=== PATIENT | male | born 1960 | race African-American/Black ===

== ENCOUNTER 2016-11-13 23:16 | Emergency (ER) | payer MEDICAID ==
[2016-11-14] MEDS ORDERED: ONDANSETRON HCL INJ/PF 4 MG/2 ML SDV IV ONE (01:52)
[2016-11-14] MEDS ORDERED: MORPHINE SULFATE 10 MG/ML INJ IV ONE (01:52)
--- NOTE | 2016-11-14 01:57 | ER Document Report ---
ED GI/ - General Chief Complaint: Abdominal Pain Stated Complaint: ABDOMINAL PAIN Notes: The patient is a 56-year-old male, past medical history diabetes, hypertension, appendectomy, presents by EMS with 2 days of epigastric pain and left lower quadrant abdominal pain with nausea and one episode of vomiting earlier today. His last bowel movement was 2 days ago. He is also having mild substernal pain. Denies fevers, cough, shortness of breath, back pain, urinary symptoms, headache, rash or flank pain. TRAVEL OUTSIDE OF THE [place] IN LAST 30 DAYS: No - Related Data Allergies/Adverse Reactions: No Known Drug Allergies Allergy (Unknown, Verified 11/11/10 08:17) Past Medical History - General Information source: Patient - Social History Smoking Status: Unknown if Ever Smoked Family History: Reviewed & Not Pertinent - Past Medical History Cardiac Medical History: Reports: Hx Coronary Artery Disease, Hx Heart Attack, Hx Hypertension Endocrine Medical History: Reports: Hx Diabetes Mellitus Type 1, Hx Diabetes Mellitus Type 2 Renal/ Medical History: Denies: Hx Peritoneal Dialysis Musculoskeltal Medical History: Reports Hx Arthritis Psychiatric Medical History: Denies: Hx Depression - Immunizations Hx Diphtheria, Pertussis, Tetanus Vaccination: Yes Review of Systems - Review of Systems Notes: REVIEW OF SYSTEMS: CONSTITUTIONAL: -fevers, -chills EENT: -eye pain, -difficulty swallowing, -nasal congestion CARDIOVASCULAR:-chest pain, -syncope. RESPIRATORY: -cough, -SOB GASTROINTESTINAL: +abdominal pain, +nausea, +vomiting, +constipation, -diarrhea GENITOURINARY: -dysuria, -hematuria MUSCULOSKELETAL: -back pain, -neck pain SKIN: -rash or skin lesions. HEMATOLOGIC: -easy bruising or bleeding. LYMPHATIC: -swollen, enlarged glands. NEUROLOGICAL: -altered mental status or loss of consciousness, -headache, - neurologic symptoms PSYCHIATRIC: -anxiety, -depression. ALL OTHER SYSTEMS REVIEWED AND NEGATIVE. Physical Exam - Vital signs Vitals: Temp Pulse Resp BP Pulse Ox 98.5 F 80 18 127/85 H 97 11/13/16 23:39 11/13/16 23:39 11/13/16 23:39 11/13/16 23:39 11/13/16 23:39 - Notes Notes: PHYSICAL EXAMINATION: GENERAL: Well-appearing, well-nourished and in no acute distress. HEAD: Atraumatic, normocephalic. EYES: Pupils equal round and reactive to light, extraocular movements intact, sclera anicteric, conjunctiva are normal. ENT: nares patent, oropharynx clear without exudates. Moist mucous membranes. NECK: Normal range of motion, supple without lymphadenopathy LUNGS: Breath sounds clear to auscultation bilaterally and equal. No wheezes rales or rhonchi. HEART: Regular rate and rhythm without murmurs ABDOMEN: Tenderness in epigastric area and left lower quadrant. Normal bowel sounds. EXTREMITIES: Normal range of motion, no pitting or edema. No cyanosis. NEUROLOGICAL: Cranial nerves grossly intact. Normal speech, normal gait. Normal sensory, motor, and reflex exams. PSYCH: Normal mood, normal affect. SKIN: Warm, Dry, normal turgor, no rashes or lesions noted. Course - Re-evaluation Re-evalutation: 11/14/16 04:35 Pt pain free. Repeat abdominal exam is completely nontender. CT shows no acute changes, other than CBD dilation that no signs of cholecystitis. Patient has no right upper quadrant abdominal pain or tenderness and no abnormal LFTs. Also spoke to patient about possibility of splenic cancer and need for MRI as an outpatient. Provided patient with report to bring to his primary care physician. Will begin Prilosec for symptoms of gastritis. Given strict return precautions and he understands. - Vital Signs Vital signs: Temp Pulse Resp BP Pulse Ox 98.5 F 80 18 127/85 H 97 11/13/16 23:39 11/13/16 23:39 11/13/16 23:39 11/13/16 23:39 11/13/16 23:39 - Laboratory Result Diagrams: 11/14/16 03:12 11/14/16 02:33 Laboratory results interpreted by me: 11/14/16 11/14/16 02:33 03:12 RDW 14.8 H BUN 22 H Creatinine 1.37 H Est GFR (Non-Af Amer) 53 L - Diagnostic Test Radiology reviewed: Image reviewed, Reports reviewed Radiology results interpreted by me: CT A/P: IMPRESSION: 1. A 3.6 cm ovoid lesion of the spleen ; cannot exclude neoplasm. Correlation with dynamic contrast MRI of the abdomen recommended. 2. 1.0 cm diameter common duct enlargement. Consider laboratory/sonographic correlation. 3. 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 4. Mild pericarditis. - EKG Interpretation by Me EKG shows normal: Sinus rhythm, Morris, Intervals, QRS Complexes, ST-T Waves Discharge - Discharge Clinical Impression: Epigastric abdominal pain Condition: Good Disposition: HOME, SELF-CARE Additional Instructions: You must follow-up with your primary care physician for further evaluation of the possibility of a cancer in your spleen. An MRI is recommended. Take the CT report with you. Begin the Prilosec to help with any pain. Return to the ER if you notice worsening pain or any other concerns. ABDOMINAL PAIN: There are many causes of abdominal pain. Pain can mean a serious problem requiring surgery (such as appendicitis). It can also be an innocent problem that goes away on its own (such as a viral infection). Often, time must pass to determine the cause of pain. The physician does not feel that hospitalization is necessary, at present. Things may change within the next 24 hours. Call the doctor or come back for re- examination if any problems occur, such as: (1) Pain that becomes more severe, steady, or becomes concentrated in one specific area. Also, pain that is more severe with movement or coughing. (2) Vomiting that persists or becomes more frequent. (3) Blood in the vomitus, urine, or bowel movements. Blood in the stool may have a tarry or black appearance. (4) Shaking chills or fever greater than 100 degrees F. (5) The abdomen becomes more distended or swollen. (6) Bowel movements cease. (7) Failure to improve as expected. NORMAL EXAM AND WORKUP: At this time, your examination and workup show no significant abnormality. No significant abnormal physical findings are noted. All laboratory, EKG, and imaging (x-ray, CT scans, ultrasound) studies that were ordered show no significant abnormality. Although your examination and all studies that were ordered showed no significant abnormal finding, there are no examinations and no studies that are 100% accurate. There is always the possibility that some abnormality could exist and not be detected with physical examination or within the limits and capabilities of laboratory and other studies. You should return or follow up as you were instructed on your visit today for further evaluation if your symptoms do not resolve. PAIN MEDICATION INJECTION: You have received an injection of a pain medication. You should experience significant pain relief within 45 minutes. This drug is a narcotic - - it will impair your judgement, slow your reaction time and make you sleepy ( as well as relieve your pain). Narcotics also can cause nausea. You should not drive, work with machinery, or perform any task requiring mental alertness until all effects of the medication are gone -- six to eight hours. Do not take any alcohol, or sedatives, and do not take any other medication without checking with your physician. FOLLOW-UP CARE: If you have been referred to a physician for follow-up care, call the physician s office for an appointment as you were instructed or within the next two days. If you experience worsening or a significant change in your symptoms, notify the physician immediately or return to the Emergency Department at any time for re-evaluation. Prescriptions: Omeprazole Magnesium [Prilosec Otc] 20 mg PO BID #14 tablet. Referrals: VANESSA LINDSAY MD [ACTIVE STAFF] - Follow up as needed
[2016-11-14 03:03] LABS: ALANINE AMINOTRANSFERASE 27 U/L (21-72); ALBUMIN 4.2 g/dL (3.5-5.0); ALKALINE PHOSPHATASE 106 U/L (38-126); ANION GAP 13 (5-19); ASPARTATE AMINO TRANSFERASE 23 U/L (17-59); BILIRUBIN,DIRECT 0.4 mg/dL (0.0-0.4); BILIRUBIN,TOTAL 0.9 mg/dL (0.2-1.3); BLOOD UREA NITROGEN 22 mg/dL (7-20); CALCIUM 9.6 mg/dL (8.4-10.2); CARBON DIOXIDE 23 mmol/L (22-30); CHLORIDE 103 mmol/L (98-107); CREATINE KINASE 85 U/L (55-170); CREATININE RESULT 1.37 mg/dL (0.52-1.25); GLUCOSE 88 mg/dL (75-110); LIPASE 54.6 U/L (23-300); POTASSIUM 4.7 mmol/L (3.6-5.0); SODIUM 138.9 mmol/L (137-145); TOTAL PROTEIN 7.5 g/dL (6.3-8.2)
[2016-11-14 03:23] LABS: ABSOLUTE BASOPHILS # (AUTO) 0.1 10^3/uL (0.0-0.2); ABSOLUTE EOSINOPHILS # (AUTO) 0.1 10^3/uL (0.0-0.6); ABSOLUTE LYMPHOCYTES (AUTO) 1.4 10^3/uL (0.5-4.7); ABSOLUTE MONOCYTES (AUTO) 0.6 10^3/uL (0.1-1.4); ABSOLUTE NEUT (AUTO) 4.9 10^3/uL (1.7-8.2); EOSINOPHILS % (AUTO) 0.8 % (0-6); HEMATOCRIT 43.5 % (37.9-51.0); HEMOGLOBIN 14.3 g/dL (13.5-17.0); HGB HCT DIFFERENCE -0.6; LYMPHOCYTES % (AUTO) 19.4 % (13-45); MEAN CORPUSCULAR HEMOGLOBIN 27.4 pg (27.0-33.4); MEAN CORPUSCULAR HGB CONC 32.9 g/dL (32.0-36.0); MEAN CORPUSCULAR VOLUME 83 fl (80-97); MONOCYTES % (AUTO) 9.1 % (3-13); RED BLOOD COUNT 5.22 10^6/uL (4.35-5.55); RED CELL DISTRIBUTION WIDTH 14.8 % (11.5-14.0); SEGMENTED NEUTROPHILS % (AUTO) 69.7 % (42-78)
[2016-11-14 05:18] VITALS: BP 129/78
--- NOTE | 2016-11-14 21:55 | EKG REPORT ---
SEVERITY:- NORMAL ECG - SINUS RHYTHM : Confirmed by: Lizeth Peña MD 14-Nov-2016 21:54:04
== END 2016-11-14 05:18 | disposition home or self-care (01) ==
LOC: ER 23:16
DX: R10.13 Epigastric pain (principal); R10.32 Left lower quadrant pain; R11.2 Nausea with vomiting, unspecified; I31.9 Disease of pericardium, unspecified; K83.8 Other specified diseases of biliary tract; D73.89 Other diseases of spleen; E11.9 Type 2 diabetes mellitus without complications; I10 Essential (primary) hypertension; I25.10 Atherosclerotic heart disease of native coronary artery without angina pectoris; I25.2 Old myocardial infarction; Z90.49 Acquired absence of other specified parts of digestive tract
CPT/HCPCS: 93005; 99284; 96374; 96375; 36415; 82550; 83690; 85025; 80076; 80048; 84484; 74177; 93010; J2270; J2405

== ENCOUNTER 2016-11-20 13:31 | Observation (INO) | payer MEDICAID ==
[2016-11-20 14:15] LABS: ABSOLUTE LYMPHOCYTES (AUTO) 1.5 10^3/uL (0.5-4.7); ABSOLUTE MONOCYTES (AUTO) 0.7 10^3/uL (0.1-1.4); ABSOLUTE NEUT (AUTO) 6.4 10^3/uL (1.7-8.2); BASOPHILS % (AUTO) 0.4 % (0-2); EOSINOPHILS % (AUTO) 0.4 % (0-6); HEMATOCRIT 41.4 % (37.9-51.0); HEMOGLOBIN 13.6 g/dL (13.5-17.0); HGB HCT DIFFERENCE -0.6; LYMPHOCYTES % (AUTO) 17.2 % (13-45); MEAN CORPUSCULAR HEMOGLOBIN 27.3 pg (27.0-33.4); MEAN CORPUSCULAR HGB CONC 32.9 g/dL (32.0-36.0); MEAN CORPUSCULAR VOLUME 83 fl (80-97); MONOCYTES % (AUTO) 8.3 % (3-13); RED BLOOD COUNT 4.98 10^6/uL (4.35-5.55); RED CELL DISTRIBUTION WIDTH 15.2 % (11.5-14.0); SEGMENTED NEUTROPHILS % (AUTO) 73.7 % (42-78); WHITE BLOOD COUNT 8.7 10^3/uL (4.0-10.5)
[2016-11-20 14:33] LABS: ALANINE AMINOTRANSFERASE 45 U/L (21-72); ALBUMIN 3.9 g/dL (3.5-5.0); ALKALINE PHOSPHATASE 89 U/L (38-126); ANION GAP 10 (5-19); ASPARTATE AMINO TRANSFERASE 25 U/L (17-59); BILIRUBIN,DIRECT 0.1 mg/dL (0.0-0.4); BILIRUBIN,TOTAL 0.5 mg/dL (0.2-1.3); BLOOD UREA NITROGEN 15 mg/dL (7-20); CALCIUM 9.9 mg/dL (8.4-10.2); CARBON DIOXIDE 25 mmol/L (22-30); CHLORIDE 105 mmol/L (98-107); CREATINE KINASE 73 U/L (55-170); CREATININE RESULT 1.16 mg/dL (0.52-1.25); GLUCOSE 113 mg/dL (75-110); POTASSIUM 4.6 mmol/L (3.6-5.0); SODIUM 139.8 mmol/L (137-145); TOTAL PROTEIN 6.8 g/dL (6.3-8.2)
--- NOTE | 2016-11-20 14:42 | ER Document Report ---
ED General - General Stated Complaint: CHEST PAIN Notes: Patient says that he is having pain in the substernal region of his chest since about 6:30 this morning when he awakened to go to the bathroom. He took a nitroglycerin and felt the pain went away some, but then he vomited a couple of times, green emesis, and then decided to lay down. When he got up his chest pain had eased and he was having pain in the upper abdomen and epigastric region which he thought might be gas. He still has a little bit of nausea, but has not vomited again. His last bowel movement was yesterday. Patient was seen here a week ago for a similar pain and was discharged to follow-up with Dr. Owusu, his primary care provider. Patient has experienced some sweating when he has these pains. No fever noted. Denies any difficulty breathing or shortness of breath. No UTI symptoms. No cough or cold or chest congestion. Came in by EMS. They gave her 4 baby aspirins and tried a nitroglycerin without any improvement. TRAVEL OUTSIDE OF THE [place] IN LAST 30 DAYS: No - Related Data Allergies/Adverse Reactions: No Known Drug Allergies Allergy (Unknown, Verified 11/11/10 08:17) Past Medical History - Social History Smoking Status: Unknown if Ever Smoked Cigarette use (# per day): No Family History: Reviewed & Not Pertinent - Past Medical History Cardiac Medical History: Reports: Hx Coronary Artery Disease, Hx Heart Attack, Hx Hypertension Endocrine Medical History: Reports: Hx Diabetes Mellitus Type 2 Musculoskeltal Medical History: Reports Hx Arthritis Past Surgical History: Reports: Hx Appendectomy - Immunizations Hx Diphtheria, Pertussis, Tetanus Vaccination: Yes Review of Systems - Review of Systems Notes: REVIEW OF SYSTEMS: CONSTITUTIONAL : Denies fever. EENT: Denies eye, ear, nose or mouth or throat pain or other symptoms. CARDIOVASCULAR: See history of present illness. RESPIRATORY: Denies cough, chest congestion, or shortness of breath. GASTROINTESTINAL: See history of present illness regarding epigastric pain with vomiting. No diarrhea. GENITOURINARY: Denies difficulty or painful urinating, urinary frequency, blood in urine. MUSCULOSKELETAL: Denies back or neck pain. Denies joint pain or swelling. SKIN: Denies rash or skin lesions. NEUROLOGICAL: Denies LOC or altered mental status. Denies headache. Denies sensory loss or motor deficits. ALL OTHER SYSTEMS REVIEWED AND NEGATIVE. Physical Exam - Vital signs Vitals: Pulse Ox 100 11/20/16 14:00 Interpretation: Normal - Notes Notes: PHYSICAL EXAMINATION: GENERAL: Well-appearing, in no acute distress. Vital signs are essentially normal. Blood pressure slightly elevated. HEAD: Atraumatic, normocephalic. EYES: Pupils equal round and reactive to light, extraocular movements intact. ENT: oropharynx clear without exudates. Moist mucous membranes. NECK: Normal range of motion, supple. LUNGS: Breath sounds clear and equal bilaterally. HEART: Regular rate and rhythm without murmurs. ABDOMEN: Soft, nontender. No guarding or rebound. No masses felt. No abdominal bruits heard. BACK: No tenderness throughout entire back. EXTREMITIES: Normal range of motion without pain. NEUROLOGICAL: Normal speech, normal gait. Normal sensory, motor, and reflex exams. Awake, alert, and oriented x3. Cranial nerves normal. PSYCH: Normal mood, normal affect. SKIN: Warm, dry, no rashes. Course - Re-evaluation Re-evalutation: 11/20/16 18:32 Patient got some relief, if not total relief from the application of the nitroglycerin patch 0.2 mg. I called and spoke with Dr. Owusu, who agreed to admit the patient for observation and a stress test tomorrow and then hopefully discharge for the weekend. - Vital Signs Vital signs: Temp Pulse Resp BP Pulse Ox 97.8 F 20 99 11/20/16 15:00 11/20/16 15:00 11/20/16 15:00 - Laboratory Result Diagrams: 11/20/16 14:00 11/20/16 14:00 Laboratory results interpreted by me: 11/20/16 11/20/16 14:00 14:00 RDW 15.2 H Plt Count 478 H Glucose 113 H - Diagnostic Test Radiology results interpreted by me: 11/20/16 18:31 Chest x-ray is normal. - EKG Interpretation by Mt EKG shows normal: Sinus rhythm Rate: Normal Rhythm: NSR Additional EKG results interpreted by me: 11/20/16 18:30 EKG is completely normal. Discharge - Discharge Clinical Impression: Chest pain Qualifiers: Chest pain type: unspecified Qualified Code(s): R07.9 - Chest pain, unspecified Condition: Stable Disposition: ADMITTED OBSERVATION [facility]: Telemetry Referrals: MIR GLYNN MD [Primary Care Provider] - Follow up as needed
[2016-11-20 14:45] LABS: CREATINE KINASE MB 0.37 ng/mL (<4.55)
[2016-11-20 14:47] LABS: TROPONIN I < 0.012 ng/mL
[2016-11-20] MEDS ORDERED: NITROGLYCERIN 5 MG (0.2 MG/HR) PATCH.TD24 TD ONE (17:22)
[2016-11-20] MEDS ORDERED: ACETAMINOPHEN 325 MG TABLET PO ONE (17:23)
--- NOTE | 2016-11-20 20:20 | PDOC H&P ---
History of Present Illness Admission Date/PCP: 11/20/16 18:41 MATIAS SANTANA MD Patient complains of: Chest pain History of Present Illness: GORDY RANDHAWA is a 56 year old male patient known to my practice who was brought to the ED by medic due to substernal chest pain. Patient reported that upon waking up this morning he experience tight pressure like chest pain in the middle of his chest. He denied radiation of pain to any other part of his body with relief after self administration of sublingual nitroglycerine. Patient reported associated diaphoresis, recurrent nausea and vomiting. He denied any significant dyspnea, cough or cold or chest congestion. Patient reported improvement in his symptom after resting for awhile but due to recurrence of his chest pain symptom he alerted EMS and was transported to the ED. He was given 324mg Aspirin and nitroglycerine without any improvement. His initial evaluation and treatment in the ED include NTG patch application and Tylenol with improvement in his symptoms. In view of his comorbidities and atypical presentation he was advised hospitalization to observation bed for further evaluation and management for possible acute coronary syndrome. Past Medical History Cardiac Medical History: Reports: Coronary Artery Disease, Myocardial Infarction , Hypertension Endocrine Medical History: Reports: Diabetes Mellitus Type 2 GI Medical History: Reports: Gastroesophageal Reflux Disease Musculoskeltal Medical History: Reports: Arthritis Past Surgical History Past Surgical History: Reports: Appendectomy Social History Smoking Status: Unknown if Ever Smoked Frequency of Alcohol Use: None Hx Recreational Drug Use: No Hx Prescription Drug Abuse: No Family History Family History: Reviewed & Not Pertinent Parental Family History Reviewed: Yes Children Family History Reviewed: Yes Sibling(s) Family History Reviewed.: Yes Medication/Allergy Home Medications: Brinzolamide/Brimonidine Tart [Simbrinza 1%-0.2% Eye Drops] 1 drop AD TID Glipizide [Glipizide Xl] 10 mg PO DAILY 11/20/16 Nitroglycerin 0.4 mg SL PRN PRN 11/20/16 Omeprazole 20 mg PO BID 11/20/16 Prednisolone Acetate [Inflamase 1% Oph Susp 5 ml] 1 drp OS QID 11/20/16 Prednisone 60 mg PO QAM 11/20/16 Timolol Maleate [Timoptic 0.5% Oph Soln 5 ml] 1 drp OU BID 04/27/17 Allergies/Adverse Reactions: No Known Drug Allergies Allergy (Unknown, Verified 11/20/16 19:46) Review of Systems Constitutional: ABSENT: chills, fever(s), headache(s), weight gain, weight loss Eyes: ABSENT: visual disturbances Ears: ABSENT: hearing changes Nose, Mouth, and Throat: ABSENT: as per HPI, headache(s), mouth pain, sore throat, vertigo, other Cardiovascular: PRESENT: chest pain. ABSENT: as per HPI, dyspnea on exertion, edema, orthropnea, palpitations, other Respiratory: ABSENT: cough, hemoptysis Gastrointestinal: PRESENT: abdominal pain - epigastric region, nausea, vomiting. ABSENT: as per HPI, bloating, coffee ground emesis, constipation, diarrhea, dysphagia, heartburn, hematemesis, hematochezia, melena, other Genitourinary: ABSENT: dysuria, hematuria Musculoskeletal: PRESENT: back pain, deformity - related to multiple joints arthritis involvement, other - hip joint pain Integumentary: ABSENT: as per HPI, diaphoresis, erythema, lesions, pruritus, rash, wounds, other Neurological: PRESENT: abnormal gait - ambulate with cane due to hip joint pain. ABSENT: as per HPI, abnormal movements, abnormal speech, confusion, convulsions, dizziness, focal weakness, frequent falls, lack of coordination, memory loss, numbness, paresthesias, restless legs, syncope, tingling, tremor(s) , vertigo, weakness, other Psychiatric: ABSENT: anxiety, depression, homidical ideation, suicidal ideation Hematologic/Lymphatic: ABSENT: easy bleeding, easy bruising, lymphadenopathy Physical Exam Vital Signs: Temp Pulse Resp BP Pulse Ox 97.8 F 13 106/88 H 99 11/20/16 15:00 11/20/16 19:01 11/20/16 19:01 11/20/16 19:01 General appearance: PRESENT: no acute distress, well-developed, well-nourished Head exam: PRESENT: atraumatic, normocephalic Eye exam: PRESENT: conjunctiva pink, EOMI, PERRLA. ABSENT: scleral icterus Mouth exam: PRESENT: moist, tongue midline Teeth exam: PRESENT: poor dentation Throat exam: ABSENT: post pharyngeal erythema, tonsillar erythema, tonsillar exudate, tonsillogmegaly, other Neck exam: PRESENT: full ROM. ABSENT: carotid bruit, JVD, lymphadenopathy, thyromegaly Respiratory exam: PRESENT: clear to auscultation sarah Cardiovascular exam: PRESENT: RRR. ABSENT: diastolic murmur, rubs, systolic murmur Pulses: PRESENT: normal dorsalis pedis pul, +2 pedal pulses bilateral Vascular exam: PRESENT: normal capillary refill GI/Abdominal exam: PRESENT: normal bowel sounds, soft. ABSENT: distended, guarding, mass, organolmegaly, rebound, tenderness Rectal exam: PRESENT: deferred Extremities exam: PRESENT: full ROM Musculoskeletal exam: PRESENT: ambulatory, deformity Neurological exam: PRESENT: alert, awake, oriented to person, oriented to place , oriented to time, oriented to situation, CN II-XII grossly intact. ABSENT: motor sensory deficit Psychiatric exam: PRESENT: appropriate affect, normal mood. ABSENT: homicidal ideation, suicidal ideation Skin exam: PRESENT: dry, intact, warm. ABSENT: cyanosis, rash Results Laboratory Results: I reviewed his laboratory report on [employer] and for significant part of my clinical decision making. Impressions: Chest X-Ray 11/20/16 13:38 IMPRESSION: NO ACUTE RADIOGRAPHIC FINDING IN THE CHEST. Assessment & Plan - Diagnosis (2) HTN (hypertension) Qualifiers: Hypertension type: essential hypertension Qualified Code(s): I10 - Essential (primary) hypertension Is this a current diagnosis for this admission?: YesPlan: See admitting physician orders. (3) CAD (coronary artery disease) Qualifiers: Coronary Disease-Associated Artery/Lesion type: unspecified vessel or lesion type [place] vs. transplanted heart: [place] heart Associated angina: angina presence unspecified Qualified Code(s): I25.10 - Atherosclerotic heart disease of [place] coronary artery without angina pectoris Is this a current diagnosis for this admission?: YesPlan: See admitting physician orders. (4) Old myocardial infarction Is this a current diagnosis for this admission?: YesPlan: See admitting physician orders. (5) Diabetes mellitus type 2 in nonobese Is this a current diagnosis for this admission?: YesPlan: See admitting physician orders. (6) Osteoarthritis of hip Qualifiers: Osteoarthritis type: unspecified Laterality: unspecified laterality Qualified Code(s): M16.9 - Osteoarthritis of hip, unspecified Is this a current diagnosis for this admission?: YesPlan: See admitting physician orders. (7) Chronic pain syndrome Is this a current diagnosis for this admission?: YesPlan: See admitting physician orders. (8) GERD (gastroesophageal reflux disease) Qualifiers: Esophagitis presence: without esophagitis Qualified Code(s): K21.9 - Gastro-esophageal reflux disease without esophagitis Is this a current diagnosis for this admission?: YesPlan: See admitting physician orders. - Time Time Spent: 50 to 70 Minutes Medications reviewed and adjusted accordingly: Yes Anticipated discharge: Home Within: within 24 hours - Plan Summary Plan Summary: See admitting physician orders.
[2016-11-20] MEDS ORDERED: DEXTROSE 40% GEL 15 GM TUBE PO PRN ×2 (20:22)
[2016-11-20] MEDS ORDERED: DEXTROSE 50%-WATER 25 GM/50 ML DISP.SYRIN IV PRN ×2 (20:22)
[2016-11-20] MEDS ORDERED: INSULIN LISPRO 100 UNIT/ML 3 ML VIAL SUBCUT PRN (20:22)
[2016-11-20] MEDS ORDERED: GLUCAGON,HUMAN RECOMB 1 MG INJ IM PRN (20:22)
[2016-11-20] MEDS ORDERED: NORMAL SALINE 1000 ML 1,000 ML IV PRN (20:22)
[2016-11-20 22:04] LABS: PROTHROMBIN TIME 12.5 SEC (11.4-15.4)
[2016-11-20 22:05] LABS: PARTIAL THROMBOPLASTIN TIME 28.8 SEC (23.5-35.8)
[2016-11-20 22:11] LABS: CREATINE KINASE MB 0.34 ng/mL (<4.55); TROPONIN I < 0.012 ng/mL
[2016-11-20] MEDS: PREDNISOLONE ACETATE 1% OPH SUSP 5 ML OS SCH (22:16)
[2016-11-21 03:40] LABS: ABSOLUTE BASOPHILS # (AUTO) 0.1 10^3/uL (0.0-0.2); ABSOLUTE EOSINOPHILS # (AUTO) 0.1 10^3/uL (0.0-0.6); ABSOLUTE MONOCYTES (AUTO) 0.5 10^3/uL (0.1-1.4); ABSOLUTE NEUT (AUTO) 4.6 10^3/uL (1.7-8.2); BASOPHILS % (AUTO) 0.7 % (0-2); EOSINOPHILS % (AUTO) 1.2 % (0-6); HEMATOCRIT 40.6 % (37.9-51.0); HEMOGLOBIN 13.1 g/dL (13.5-17.0); HGB HCT DIFFERENCE -1.3; LYMPHOCYTES % (AUTO) 27.2 % (13-45); MEAN CORPUSCULAR HEMOGLOBIN 27.2 pg (27.0-33.4); MEAN CORPUSCULAR HGB CONC 32.4 g/dL (32.0-36.0); MEAN CORPUSCULAR VOLUME 84 fl (80-97); MONOCYTES % (AUTO) 7.2 % (3-13); RED BLOOD COUNT 4.84 10^6/uL (4.35-5.55); RED CELL DISTRIBUTION WIDTH 15.2 % (11.5-14.0); SEGMENTED NEUTROPHILS % (AUTO) 63.7 % (42-78); WHITE BLOOD COUNT 7.2 10^3/uL (4.0-10.5)
[2016-11-21 03:55] LABS: ALANINE AMINOTRANSFERASE 44 U/L (21-72); ALBUMIN 3.4 g/dL (3.5-5.0); ALKALINE PHOSPHATASE 73 U/L (38-126); ANION GAP 8 (5-19); ASPARTATE AMINO TRANSFERASE 28 U/L (17-59); BILIRUBIN,DIRECT 0.3 mg/dL (0.0-0.4); BILIRUBIN,TOTAL 0.6 mg/dL (0.2-1.3); BLOOD UREA NITROGEN 19 mg/dL (7-20); CALCIUM 9.5 mg/dL (8.4-10.2); CARBON DIOXIDE 27 mmol/L (22-30); CHLORIDE 104 mmol/L (98-107); CHOLESTEROL 173.86 mg/dL (0-200); CREATINE KINASE 61 U/L (55-170); CREATININE RESULT 1.34 mg/dL (0.52-1.25); Direct HDL 48 mg/dL (>40); GLUCOSE 116 mg/dL (75-110); POTASSIUM 4.5 mmol/L (3.6-5.0); SODIUM 139.4 mmol/L (137-145); TOTAL PROTEIN 6.3 g/dL (6.3-8.2); TRIGLYCERIDES 104 mg/dL (<150)
[2016-11-21 04:06] LABS: DIRECT LDL 94 mg/dL (<100)
[2016-11-21 04:07] LABS: CREATINE KINASE MB 0.38 ng/mL (<4.55)
[2016-11-21 04:17] LABS: TROPONIN I < 0.012 ng/mL
[2016-11-21] MEDS: NITROGLYCERIN 0.4 MG/TAB 25 TAB/BOTTLE SL PRN ×2 (05:46→05:59)
[2016-11-21] MEDS ORDERED: LANSOPRAZOLE 30 MG TAB.RAP.DR PO SCH (06:00)
[2016-11-21] MEDS ORDERED: ENOXAPARIN SODIUM INJ 40 MG/0.4 ML DISP.SYRIN SUBCUT SCH (08:00)
[2016-11-21] MEDS: TIMOLOL MALEATE 0.5% OPH SOLN 5 ML OU SCH ×2 (09:21→17:28)
[2016-11-21] MEDS: PREDNISOLONE ACETATE 1% OPH SUSP 5 ML OS SCH ×3 (09:21→17:28)
--- NOTE | 2016-11-21 09:40 | EKG REPORT ---
SEVERITY:- NORMAL ECG - SINUS RHYTHM : Confirmed by: Sebastian Yeager 21-Nov-2016 09:39:25
--- NOTE | 2016-11-21 09:40 | EKG REPORT ---
SEVERITY:- BORDERLINE ECG - SINUS RHYTHM PROBABLE LEFT ATRIAL ABNORMALITY : Confirmed by: Sebastian Yeager 21-Nov-2016 09:39:29
[2016-11-21] MEDS ORDERED: (PENDING PHARMACY ID) (Brinzolamide/Brimonidine Tart [Simbrinza 1%-0.2% Eye Drops] 1 DROP) AD SCH (10:00)
[2016-11-21] MEDS ORDERED: GLIPIZIDE XL 5 MG TAB.ER.24 PO SCH (10:00)
[2016-11-21] MEDS ORDERED: NITROGLYCERIN 5 MG (0.2 MG/HR) PATCH.TD24 TD SCH (10:00)
[2016-11-21 10:18] LABS: CREATINE KINASE MB 0.48 ng/mL (<4.55)
[2016-11-21 10:22] LABS: TROPONIN I < 0.012 ng/mL
--- NOTE | 2016-11-21 16:48 | PDOC DISCHARGE SUMMARY ---
General - Admit/Disc Date/PCP Admission Date/Primary Care Provider: 11/20/16 20:20 MIR GLYNN MD Discharge Date: 11/21/16 - Discharge Diagnosis (1) Atypical chest pain Is this a current diagnosis for this admission?: YesSummary: Less likely cardiac. Most liked gastroesophageal with esophageal spasm and reflux issue. (2) HTN (hypertension) Is this a current diagnosis for this admission?: Yes (3) CAD (coronary artery disease) Is this a current diagnosis for this admission?: Yes (4) Old myocardial infarction Is this a current diagnosis for this admission?: Yes (5) Diabetes mellitus type 2 in nonobese Is this a current diagnosis for this admission?: Yes (6) Osteoarthritis of hip Is this a current diagnosis for this admission?: Yes (7) Chronic pain syndrome Is this a current diagnosis for this admission?: Yes (8) GERD (gastroesophageal reflux disease) Is this a current diagnosis for this admission?: Yes - Additional Information Resuscitation Status: Full Code Discharge Diet: Cardiac, Diabetic Discharge Activity: Activity As Tolerated Home Medications: Brinzolamide/Brimonidine Tart [Simbrinza 1%-0.2% Eye Drops] 1 drop AD TID Glipizide [Glipizide Xl] 10 mg PO DAILY 11/20/16 Nitroglycerin 0.4 mg SL PRN PRN 11/20/16 Prednisolone Acetate [Inflamase 1% Oph Susp 5 ml] 1 drp OS QID 11/20/16 Timolol Maleate [Timoptic 0.5% Oph Soln 5 ml] 1 drp OU BID 11/20/16 Lansoprazole [Prevacid 30 mg Odt Tablet] 30 mg PO Q6AM #30 tab.rap.dr 11/21/16 Nitroglycerin [Nitro-Dur 5 mg (0.2 mg/Hr) Transdermal Patch] 1 each TD DAILY # 30 patch.[email or web address] 11/21/16 History of Present Illness History of Present Illness: GORDY RANDHAWA is a 56 year old male patient known to my practice who was brought to the ED by medic due to substernal chest pain. Patient reported that upon waking up this morning he experience tight pressure like chest pain in the middle of his chest. He denied radiation of pain to any other part of his body with relief after self administration of sublingual nitroglycerine. Patient reported associated diaphoresis, recurrent nausea and vomiting. He denied any significant dyspnea, cough or cold or chest congestion. Patient reported improvement in his symptom after resting for awhile but due to recurrence of his chest pain symptom he alerted EMS and was transported to the ED. He was given 324mg Aspirin and nitroglycerine without any improvement. His initial evaluation and treatment in the ED include NTG patch application and Tylenol with improvement in his symptoms. In view of his comorbidities and atypical presentation he was advised hospitalization to observation bed for further evaluation and management for possible acute coronary syndrome. Hospital Course Hospital Course: Patient responded to sublingual nitroglycerin administration for reported chest pain episodes. His serial cardiac enzymes were within normal range x 5 during this hospitalization. Attempt at nuclear stress test this morning was aborted due to reported chest pain earlier by the patient that resolved with SL nitroglycerine. Patient has remain pain free for most of the admission period. No other elicited or associated symptoms. He was agreeable with discharge home today with plan for outpatient stress test in near future. He will follow up with me in the office as instructed upon discharge. Physical Exam Vital Signs: Temp Pulse Resp BP Pulse Ox 98.2 F 77 18 139/80 H 100 11/21/16 11:07 11/21/16 14:00 11/21/16 11:07 11/21/16 11:07 11/21/16 11:07 Intake & Output 11/20/16 11/21/16 11/22/16 06:59 06:59 06:59 Intake Total 800 Output Total 300 Balance 500 Weight 70.2 kg General appearance: PRESENT: no acute distress, cooperative Head exam: PRESENT: atraumatic Eye exam: PRESENT: conjunctiva pink, EOMI, PERRLA. ABSENT: scleral icterus Ear exam: PRESENT: normal external ear exam Mouth exam: PRESENT: moist, tongue midline Neck exam: ABSENT: carotid bruit, full ROM, JVD, lymphadenopathy, meningismus, tenderness, thyromegaly, tracheal deviation, tracheostomy, other Respiratory exam: PRESENT: clear to auscultation sarah Cardiovascular exam: PRESENT: RRR. ABSENT: diastolic murmur, rubs, systolic murmur Pulses: PRESENT: normal dorsalis pedis pul, +2 pedal pulses bilateral Vascular exam: PRESENT: normal capillary refill GI/Abdominal exam: PRESENT: normal bowel sounds, soft. ABSENT: distended, guarding, mass, organolmegaly, rebound, tenderness Extremities exam: PRESENT: full ROM Musculoskeletal exam: PRESENT: ambulatory - with straight cane assistance, deformity - from multiple joints involvement with osteoarthritis Neurological exam: PRESENT: alert, awake, oriented to person, oriented to place , oriented to time, oriented to situation, CN II-XII grossly intact. ABSENT: motor sensory deficit Psychiatric exam: PRESENT: appropriate affect, normal mood. ABSENT: homicidal ideation, suicidal ideation Skin exam: PRESENT: dry, intact, warm. ABSENT: cyanosis, rash Results Laboratory Results: 11/21/16 03:07 11/21/16 03:07 11/21/16 11/21/16 03:07 03:07 WBC 7.2 RBC 4.84 Hgb 13.1 L Hct 40.6 MCV 84 MCH 27.2 MCHC 32.4 RDW 15.2 H Plt Count 394 Seg Neutrophils % 63.7 Lymphocytes % 27.2 Monocytes % 7.2 Eosinophils % 1.2 Basophils % 0.7 Absolute Neutrophils 4.6 Absolute Lymphocytes 2.0 Absolute Monocytes 0.5 Absolute Eosinophils 0.1 Absolute Basophils 0.1 Sodium 139.4 Potassium 4.5 Chloride 104 Carbon Dioxide 27 Anion Gap 8 BUN 19 Creatinine 1.34 H Est GFR ( Amer) > 60 Est GFR (Non-Af Amer) 55 L Glucose 116 H Calcium 9.5 Total Bilirubin 0.6 AST 28 ALT 44 Alkaline Phosphatase 73 Total Protein 6.3 Albumin 3.4 L Triglycerides 104 Cholesterol 173.86 LDL Cholesterol Direct 94 VLDL Cholesterol 21.0 HDL Cholesterol 48 11/20/16 11/20/16 11/21/16 21:08 21:08 03:07 Creatine Kinase 65 61 CK-MB (CK-2) 0.34 Troponin I < 0.012 11/21/16 11/21/16 11/21/16 03:07 09:25 09:25 Creatine Kinase 61 CK-MB (CK-2) 0.38 0.48 Troponin I < 0.012 < 0.012 Impressions: Chest X-Ray 11/20/16 13:38 IMPRESSION: NO ACUTE RADIOGRAPHIC FINDING IN THE CHEST. Qualifiers PATEINT BEING DISCHARGED WITH ANY OF THE FOLLOWING DIAGNOSIS?: No Plan Discharge Plan: D/C home today. Follow up in office for post hospitalization care as instructed upon discharge. Time Spent: Less than 30 Minutes
[2016-11-21 17:21] VITALS: BP 144/88
== END 2016-11-21 17:43 | disposition home or self-care (01) ==
LOC: ER 13:31 → EH 18:41 → UNDOADMOB 18:41 → EH 20:20 → 5 20:35 → EH 20:35
PROVIDERS: ADMIT Internal Medicine Geriatric Medicine; ATTEND Internal Medicine Geriatric Medicine
DX: R07.89 Other chest pain (principal); I10 Essential (primary) hypertension; I25.2 Old myocardial infarction; I25.10 Atherosclerotic heart disease of native coronary artery without angina pectoris; E11.9 Type 2 diabetes mellitus without complications; M16.10 Unilateral primary osteoarthritis, unspecified hip; G89.4 Chronic pain syndrome; K21.9 Gastro-esophageal reflux disease without esophagitis; R11.2 Nausea with vomiting, unspecified; R10.13 Epigastric pain; M13.89 Other specified arthritis, multiple sites; M54.9 Dorsalgia, unspecified; R26.89 Other abnormalities of gait and mobility; Z79.84 Long term (current) use of oral hypoglycemic drugs; Z90.49 Acquired absence of other specified parts of digestive tract
CPT/HCPCS: 93005 ×2; 99285; 36415 ×2; 82553 ×2; 82962 ×2; 82550 ×2; 83690; 85025 ×2; 85610; 85730; 80053 ×2; 84484 ×2; 83036; 80061; 71010; 93010 ×2; G0378 ×3; J3490 ×7; J1650; J7030

== ENCOUNTER → 2016-12-11 | Outpatient (CLI) | payer MEDICAID ==
[~2016-12-11] MED LIST: AMINOPHYLLINE INJ/PF 250 MG/10 ML SDV IV ONE; REGADENOSON INJ 0.4 MG/5 ML DISP.SYRIN IV ONE
--- NOTE | 2016-12-11 17:18 | DRAGON STRESS TEST REPORT ---
INTRAVENOUS LEXISCAN CARDIOLITE STRESS TEST USING SINGLE PHOTON EMMISION COMPUTERIZED TOMOGRAPHIC. DATE OF PROCEDURE: December 11, 2016 INDICATION : Chest pain CARDIAC RISK FACTORS: Diabetes, dyslipidemia, family history of heart disease RESTING EKG: Sinus rhythm, no baseline ST-T wave changes noted STRESS EKG: No significant changes noted with LexiScan bolus REASON FOR TERMINATION: Protocol. PROCEDURE REPORT: Baseline heart rate 74 beats per minute with blood pressure of 131/91. Patient had no significant complaints. Heart rate at 2 minutes post bolus 94 with a blood pressure of 148/83. 3 minutes post bolus heart rate 88 with blood pressure of 144/73. No significant EKG changes were noted. Patient had no significant complaints during the procedure or postprocedure. Patient injected with Aminophyllin 75 mg at 3 minutes or later after Lexiscan bolus. CONCLUSIONS: Normal EKG and hemodynamic response to IV LexiScan. NUCLEAR DATA: At rest the patient was given 12.85 35.5 millicuries of technetium 99 sestamibi injected intravenously. As per protocol rest gated SPECT images were obtained. Subsequently the patient was given intravenous LexiScan at a dose of 0.4 mg in 5 mL intravenously, followed by flush with normal saline. Subsequently the stress dose of 35.5 millicuries of technetium 99 sestamibi was injected intravenously. As per protocol stress gated images were obtained. NUCLEAR INTERPRETATION: Both raw and processed data were used for interpretation. Visual, qualitative, computer-generated quantitative data was used. There was good myocardial uptake of technetium compound. Motion artifact and soft tissue attenuations were noted. Increased visceral uptake was noted. No definitive areas of transient perfusion defect noted. No definitive areas of fixed perfusion defect or scars noted. EKG gated imaging showed LV EF at 50 %, rest and stress gated EF similar visually. T. I D. ratio was 1.19]. Lung heart ratio noted to be within normal limits 0.25. No significant extracardiac and abnormal radiotracer activities were noted. RV free wall uptake was noted to be WNL IMPRESSION: Also refer to comments under nuclear interpretation. Also test results needs to be interpreted in the context of pretest probability. 1. There is no definitive scintigraphic evidence of LexiScan induced myocardial ischemia. 2. There is no definitive scintigraphic evidence of myocardial infarction/scar. 3. EKG gated imaging shows left ejection fraction of approximately 50 %. 4. Clinical correlation requested as occasionally single vessel disease or balanced ischemia could be missed. In approximately 10% of the cases Lexiscan may not cause adequate vasodilatory stress. RECOMMENDATIONS: Aggressive risk factor modification, medical therapy. Clinical correlation with echocardiogram derived ejection fraction. Inability to exercise by itself can lead to increased cardiovascular event risks. Sebastian Yeager M.D., [facility] Actuarial Director appian bpm developer, Board certified in cardiovascular diseases, Nuclear cardiology, Echocardiography Cardiac CT and cardiac MRI Ph. [phone] [facility]
== END ==
LOC: RAD 07:05
PROVIDERS: ATTEND Internal Medicine Geriatric Medicine
DX: R07.9 Chest pain, unspecified (principal)
CPT/HCPCS: 93017; 78452; A9500; J2785; J0280; Q9969

== ENCOUNTER 2017-05-15 09:05 | Emergency (ER) | payer OTHER, MEDICAID ==
[2017-05-15] MEDS ORDERED: OXYCODONE-ACETAMINOPHEN 5-325 MG TABLET PO ONE (09:37)
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
[2017-05-15 11:07] VITALS: BP 122/79
== END 2017-05-15 11:02 | disposition home or self-care (01) ==
LOC: ER 09:05
DX: S20.211A Contusion of right front wall of thorax, initial encounter (principal); S80.01XA Contusion of right knee, initial encounter; V85.0XXA Driver of special construction vehicle injured in traffic accident, initial encounter; I25.10 Atherosclerotic heart disease of native coronary artery without angina pectoris; I10 Essential (primary) hypertension; E11.9 Type 2 diabetes mellitus without complications; I25.2 Old myocardial infarction
CPT/HCPCS: 99283